=== PATIENT | male | born 1985 | race American Indian/Alaskan Native ===

== ENCOUNTER 2016-12-10 11:41 | Emergency (ER) | payer MEDICAID ==
[2016-12-10 11:58] VITALS: BP 138/93
--- NOTE | 2016-12-10 12:52 | XRay Report ---
SACROILIAC JOINT RADIOGRAPHS INDICATION: Sacral pain. COMPARISON: None similar at this institution. FINDINGS: Frontal and oblique views demonstrate normal imaged lower lumbar spine, sacrum, coccyx and included bilateral hips. Spina bifida occulta at S1 may be present. Nonobstructive bowel gas pattern. CONCLUSION: No acute radiographic abnormality, as described. Thank you for the opportunity to participate in this patient's care.
[2016-12-10] MEDS: TORADOL IM ONE (17:35)
--- NOTE | 2016-12-10 18:36 | Emergency Department Report ---
Entered by SAWYER SWAN, acting as scribe for KITTY DANIEL PA. ED Back Pain/Injury HPI - General Chief Complaint: Back Pain/Injury Stated Complaint: BACK PAINS Time Seen by Provider: 12/10/16 17:01 Source: patient Limitations: No Limitations - History of Present Illness Initial Comments: 31 y/o male with a PMHx of migraines and psychiatric treatment presents to the ED c/o sacral pain that began this morning. Rates pain a 10/10 in severity, which he describes as sharp in quality. Aggravated with movement and alleviated with immobilization. Patient states he woke up this morning with onset of back pain. Denies any fall/injury, abdominal pain, nausea, vomiting, diarrhea, constipation, hematochezia, rectal bleeding, incontinence, urgency, frequency, fever, and chills. Notes Hx of back pain. Allergic to quetiapine fumerate. MD Complaint: back pain -: This morning Similar Symptoms Previously: Yes Place: home Radiation: none Severity: severe Severity scale (0 -10): 10 Quality: sharp Consistency: constant Improves With: immobilization Worsens With: movement Context: unknown, other (Hx of back pain) Associated Symptoms: denies other symptoms. denies: confusion, weakness, chest pain, numbness, difficulty walking, cough, difficulty urinating, diaphoresis, incontinence, fever/chills, constipation, headaches, abdominal pain, loss of appetite, malaise, nausea/vomiting, rash, seizure, shortness of breath, syncope Treatments Prior to Arrival: other (none) - Related Data Home Medications Medication Instructions Recorded Confirmed Last Taken Haloperidol Decanoate [Haldol 100 mg IM QMONTH 06/05/16 06/05/16 06/03/16 Decanoate] Previous Rx's Medication Instructions Recorded Last Taken Type traMADol [Ultram] 50 mg PO Q6HR PRN #15 tablet 12/10/16 Unknown Rx Allergies Allergy/AdvReac Type Severity Reaction Status Date / Time peanut Allergy Headache Verified 12/10/16 11:58 quetiapine fumarate Allergy Unknown Verified 12/10/16 11:58 [From Seroquel] ED Review of Systems Comment: All other systems reviewed and negative Constitutional: denies: chills, fever Eyes: denies: eye pain, eye discharge, vision change ENT: denies: ear pain, throat pain Respiratory: denies: cough, orthopnea, shortness of breath, SOB with exertion, SOB at rest, stridor, wheezing Cardiovascular: denies: chest pain, palpitations, dyspnea on exertion, orthopnea , edema, syncope, paroxysmal nocturnal dyspnea Endocrine: no symptoms reported Gastrointestinal: denies: abdominal pain, nausea, vomiting, diarrhea Genitourinary: denies: urgency, dysuria, frequency, hematuria, discharge Musculoskeletal: back pain (sacrum ). denies: joint swelling, arthralgia, myalgia Skin: denies: rash, lesions Neurological: denies: headache, weakness, paresthesias Psychiatric: denies: anxiety, depression Hematological/Lymphatic: denies: easy bleeding, easy bruising ED Past Medical Hx - Past Medical History Previous Medical History?: Yes Hx Headaches / Migraines: Yes Hx Psychiatric Treatment: Yes (BIPOLAR / SCHIZO) - Surgical History Past Surgical History?: No - Family History Family history: no significant - Social History Smoking Status: Never Smoker Substance Use Type: None Other Social History: single - Medications Home Medications: Home Medications Medication Instructions Recorded Confirmed Last Taken Type Haloperidol Decanoate [Haldol 100 mg IM QMONTH 06/05/16 06/05/16 06/03/16 History Decanoate] traMADol [Ultram] 50 mg PO Q6HR PRN #15 tablet 12/10/16 Unknown Rx ED Physical Exam - General Limitations: No Limitations General appearance: alert, in no apparent distress - Head Head exam: Present: atraumatic, normocephalic, normal inspection - Eye Eye exam: Present: normal appearance, PERRL, EOMI. Absent: conjunctival injection, nystagmus, periorbital swelling Pupils: Present: normal accommodation - ENT ENT exam: Present: normal exam, normal orophraynx, mucous membranes moist - Neck Neck exam: Present: normal inspection, full ROM. Absent: tenderness, meningismus, lymphadenopathy - Respiratory Respiratory exam: Present: normal lung sounds bilaterally. Absent: respiratory distress, wheezes, rales, rhonchi, stridor, chest wall tenderness, accessory muscle use, decreased breath sounds - Cardiovascular Cardiovascular Exam: Present: regular rate, normal rhythm, normal heart sounds. Absent: systolic murmur, diastolic murmur - GI/Abdominal GI/Abdominal exam: Present: soft, normal bowel sounds. Absent: distended, tenderness, guarding, rebound, rigid - Extremities Exam Extremities exam: Present: normal inspection, full ROM, normal capillary refill. Absent: tenderness, pedal edema, joint swelling, calf tenderness - Back Exam Back exam: Present: normal inspection, full ROM. Absent: tenderness, CVA tenderness (R), CVA tenderness (L), muscle spasm, paraspinal tenderness, vertebral tenderness, rash noted - Expanded Back Exam Expanded Back exam: Absent: saddle anesthesia Back exam: Negative Straight Leg Raising: Left, Right - Neurological Exam Neurological exam: Present: alert, oriented X3, normal gait, reflexes normal, other (No focal neurological deficit). Absent: motor sensory deficit - Psychiatric Psychiatric exam: Present: normal affect, normal mood - Skin Skin exam: Present: warm, dry, intact, normal color. Absent: rash ED Course Vital Signs 12/10/16 12/10/16 12/10/16 11:55 17:35 18:29 Temperature 97.5 F L Pulse Rate 109 H 78 Respiratory 18 Rate Blood Pressure 138/93 O2 Sat by Pulse 98 Oximetry - Reevaluation(s) Reevaluation #1: 12/10/16 18:31 Received Toradol 60 mg IM in emergency room for back pain which relieved this pain. ED Medical Decision Making - Radiology Data Radiology results: report reviewed X-ray of the sacroiliac revealed no acute findings - Medical Decision Making ED course: Pt here report that he woke up this morning in with pain in his sacral area. Patient was given Toradol 60 mg IM in emergency room which relieved his pain. Denies any injury and denies any urinary symptoms. No abdominal pain and no fever or chills. No nausea or vomiting or numbness or tingling to his extremities. She is neurologically intact. Patient with diagnosis of lower back pain without sciatica. Patient discharged home and I instructed them to follow up with Dr. Thomas who is orthopedic doctor. He was understanding the discharge instruction and treatment plan and discharged home in stable condition prescription for Ultram. ED Disposition Clinical Impression: Sacral back pain Disposition: - TO HOME OR SELFCARE Is pt being admited?: No Does the pt Need Aspirin: No Condition: Stable Instructions: Back Pain (ED) Additional Instructions: Please follow up with orthopedic doctor. Rest 72 hours Prescriptions: traMADol [Ultram] 50 mg PO Q6HR PRN #15 tablet PRN Reason: Pain Referrals: PRIMARY CARE, [Primary Care Provider] - 3-5 Days DARREN THOMAS MD [Staff Physician] - 3-5 Days Forms: Work/School Release Form(ED) This documentation as recorded by the BENY higuera JASMINE,accurately reflects the service I personally performed and the decisions made by ,KITTY DANIEL PA.
== END 2016-12-10 19:00 | disposition home or self-care (01) ==
LOC: ED 11:41
DX: M54.5 Low back pain (principal)
CPT/HCPCS: 72202; 96372; 99283; J1885

== ENCOUNTER 2016-12-29 09:06 | Emergency (ER) | payer MEDICAID ==
--- NOTE | 2016-12-29 11:26 | Cat Scan Report ---
CT HEAD WITHOUT CONTRAST INDICATION: Headache, confusion. COMPARISON: None similar. FINDINGS: Noncontrast head CT repeated for artifact, though demonstrates normal ventricles and sulci without acute or recent infarct, hemorrhage, mass effect or midline shift. No abnormal extra-axial fluid collections. Posterior fossa structures and basilar cisterns appear within normal limits. Symmetric eye globes. Mild maxillary sinusitis anteriorly, right more than left. Mild bilateral ethmoid sinusitis posteriorly as well. Clear remainder imaged paranasal sinuses and mastoid air cells. Leftward nasal septal bowing. Intact calvarium. Normal overlying scalp soft tissues. Few radiopaque dental material incidentally noted. Approximately 4 x 1.8 cm prominent nasopharyngeal soft tissues may be directly visualized. CONCLUSION: No acute intracranial CT abnormality with mild sinusitis and few other findings, as described. Thank you for the opportunity to participate in this patient's care.
[2016-12-29 11:29] VITALS: BP 128/89
[2016-12-29] MEDS ORDERED: TORADOL IM ONE (12:25)
--- NOTE | 2016-12-29 12:35 | Emergency Department Report ---
ED Headache HPI - General Chief Complaint: Headache Stated Complaint: SLEEPING ISSUES ,MATY Time Seen by Provider: 12/29/16 12:03 - History of Present Illness Initial Comments: 31-year-old male with a history of schizophrenia with headache. Patient states that he has had a headache for several days. Feels like someone hit him in the head. He denies any injuries had any trauma. He states he is not taking his medications for schizophrenia. He has no SI or HI. No blurry vision nausea or vomiting. He states he feels like he's had a seizure. He has no history of seizure activity. Timing/Duration: other (several days) Quality: moderate Head Injury Location: global Recent Head Trauma: no recent headache/trauma Associated Symptoms: denies symptoms Allergies/Adverse Reactions: Allergies peanut Allergy (Verified 12/10/16 11:58) Headache quetiapine fumarate [From Seroquel] Allergy (Verified 12/10/16 11:58) Unknown Home Medications: Ambulatory Orders Haloperidol Decanoate [Haldol Decanoate] 100 mg IM QMONTH 06/05/16 traMADol [Ultram] 50 mg PO Q6HR PRN #15 tablet 12/10/16 Ibuprofen [Motrin 600 MG tab] 600 mg PO Q8H PRN #30 tablet 12/29/16 ED Review of Systems ROS: Stated complaint: SLEEPING ISSUES ,MATY Other details as noted in HPI Comment: All other systems reviewed and negative Constitutional: denies: chills, fever Eyes: denies: eye pain, eye discharge, vision change ENT: denies: ear pain, throat pain Respiratory: denies: cough, shortness of breath, wheezing Cardiovascular: denies: chest pain, palpitations Endocrine: no symptoms reported Gastrointestinal: denies: abdominal pain, nausea, diarrhea Genitourinary: denies: urgency, dysuria Musculoskeletal: denies: back pain, joint swelling, arthralgia Skin: denies: rash, lesions Neurological: headache. denies: weakness, paresthesias Psychiatric: denies: anxiety, depression Hematological/Lymphatic: denies: easy bleeding, easy bruising ED Past Medical Hx - Past Medical History Hx Headaches / Migraines: Yes Hx Psychiatric Treatment: Yes (BIPOLAR / SCHIZO) - Surgical History Past Surgical History?: No - Family History Family history: no significant - Social History Smoking Status: Current Every Day Smoker Substance Use Type: None, Marijuana - Medications Home Medications: Home Medications Medication Instructions Recorded Confirmed Last Taken Type Haloperidol Decanoate [Haldol 100 mg IM QMONTH 06/05/16 06/05/16 06/03/16 History Decanoate] traMADol [Ultram] 50 mg PO Q6HR PRN #15 tablet 12/10/16 Unknown Rx Ibuprofen [Motrin 600 MG tab] 600 mg PO Q8H PRN #30 tablet 12/29/16 Unknown Rx ED Physical Exam - General Limitations: No Limitations General appearance: alert, in no apparent distress - Head Head exam: Present: atraumatic, normocephalic - Eye Eye exam: Present: normal appearance, PERRL, EOMI Pupils: Present: normal accommodation - ENT ENT exam: Present: mucous membranes moist - Neck Neck exam: Present: normal inspection - Respiratory Respiratory exam: Present: normal lung sounds bilaterally. Absent: respiratory distress - Cardiovascular Cardiovascular Exam: Present: regular rate, normal rhythm. Absent: systolic murmur, diastolic murmur, rubs, gallop - GI/Abdominal GI/Abdominal exam: Present: soft, normal bowel sounds - Rectal Rectal exam: Present: deferred - Extremities Exam Extremities exam: Present: normal inspection - Back Exam Back exam: Present: normal inspection - Neurological Exam Neurological exam: Present: alert, oriented X3, CN II-XII intact, normal gait. Absent: motor sensory deficit - Psychiatric Psychiatric exam: Present: normal affect, normal mood - Skin Skin exam: Present: warm, dry, intact, normal color. Absent: rash ED Course Vital Signs 12/29/16 12/29/16 12/29/16 09:39 11:28 11:29 Temperature 98.4 F 98.1 F Pulse Rate 67 72 Respiratory 18 18 Rate Blood Pressure 145/90 Blood Pressure 128/89 [Right] O2 Sat by Pulse 97 97 97 Oximetry 12/29/16 12:35 Temperature Pulse Rate Respiratory 18 Rate Blood Pressure Blood Pressure [Right] O2 Sat by Pulse Oximetry ED Medical Decision Making - Lab Data Result diagrams: 12/29/16 12:48 12/29/16 12:48 Laboratory Results - last 24 hr 12/29/16 12/29/16 12:48 12:48 WBC 6.5 RBC 4.87 Hgb 13.2 Hct 40.6 MCV 83 L MCH 27 L MCHC 32 RDW 13.5 Plt Count 269 Lymph % (Auto) 44.7 H [place] % (Auto) 7.4 H Eos % (Auto) 5.2 H Baso % (Auto) 0.6 Lymph # 2.9 [place] # 0.5 Eos # 0.3 Baso # 0.0 Seg Neutrophils % 42.1 Seg Neutrophils # 2.7 Sodium 138 Potassium 4.1 Chloride 100.4 Carbon Dioxide 26 Anion Gap 16 BUN 11 Creatinine 0.6 L Estimated GFR > 60 BUN/Creatinine Ratio 18.33 Glucose 83 Calcium 9.0 Total Bilirubin 0.30 AST 16 ALT 17 Alkaline Phosphatase 46 Total Protein 7.2 Albumin 4.1 Albumin/Globulin Ratio 1.3 - Medical Decision Making This is a 31-year-old male with a headache for several days. Given his history of schizophrenia and unclear history of possible head trauma versus seizure I feel that the patient needs a CAT scan of his head. He is not medically cleared to avoid CT imaging. Plan to check basic labs as well but my suspicion is this will be normal. Plan to treat with IV Toradol and anticipate discharge. Labs unremarkable head CT negative. Plan to discharge home with pain medications for headache. Portions of this chart were dictated with dictation software. There may be dictation errors contained within this note. Critical care attestation.: If time is entered above; I have spent that time in minutes in the direct care of this critically ill patient, excluding procedure time. ED Disposition Clinical Impression: Headache Disposition: DC-01 TO HOME OR SELFCARE Is pt being admited?: No Condition: Stable Instructions: Acute Headache (ED) Prescriptions: Ibuprofen [Motrin 600 MG tab] 600 mg PO Q8H PRN #30 tablet PRN Reason: Pain Referrals: PRIMARY CARE, [Primary Care Provider] - 3-5 Days
[2016-12-29 13:03] LABS: Basophils % (Auto) 0.6 % (0.0-1.8); Eosinophils % (Auto) 5.2 % (0.0-4.3); Hematocrit 40.6 % (35.5-45.6); Hemoglobin 13.2 gm/dl (11.8-15.2); Mean Corpuscular HGB Conc 32 % (32-34); Mean Corpuscular Hemoglobin 27 pg (28-32); Mean Corpuscular Volume 83 fl (84-94); Platelet Count 269 K/mm3 (140-440); Red Blood Count 4.87 M/mm3 (3.65-5.03); Red Cell Distribution Width 13.5 % (13.2-15.2); White Blood Count 6.5 K/mm3 (4.5-11.0)
[2016-12-29 13:22] LABS: Alanine Aminotransferase 17 units/L (7-56); Albumin 4.1 g/dL (3.9-5); Albumin/Globulin Ratio 1.3 %; Alkaline Phosphatase 46 units/L (35-129); Anion Gap 16 mmol/L; BUN/Creatinine Ratio 18.33; Blood Urea Nitrogen 11 mg/dL (9-20); Carbon Dioxide 26 mmol/L (22-30); Chloride 100.4 mmol/L (98-107); Glucose 83 mg/dL (75-100); Potassium 4.1 mmol/L (3.6-5.0); Sodium 138 mmol/L (137-145); Total Protein 7.2 g/dL (6.3-8.2)
== END 2016-12-29 13:39 | disposition home or self-care (01) ==
LOC: ED 09:06
DX: R51 Headache (principal); F31.9 Bipolar disorder, unspecified; F20.9 Schizophrenia, unspecified; F17.200 Nicotine dependence, unspecified, uncomplicated; F12.10 Cannabis abuse, uncomplicated; Z91.010 Allergy to peanuts; Z88.8 Allergy status to other drugs, medicaments and biological substances
CPT/HCPCS: 36415; 70450; 80053; 85025; 96372; 99284; J1885